=== PATIENT | female | born 1955 | race Caucasian/White ===

== ENCOUNTER → 2018-09-09 | Outpatient (CLI) | payer MEDICARE ==
[~2018-09-09] MED LIST: AC500T PO; ALPR.25T PO; CEPH-38 PO; CEPH500C PO; DICL75TA2 PO; DIPH50CA33 PO; FLUO20CA25 PO; FLUO40CA PO; HYDR-3454 PO; HYDR-3583 PO; LISI1TAB PO; LISI1TAB6 PO; LVT.05T PO; MTF500T PO; OMEP20CA6 PO; PHEN37.555 PO; TRAM50TA2 PO; penicillin PO
[2018-09-09 12:20] LABS: HEMATOCRIT 34 % (35-52); HEMOGLOBIN 10.5 G/DL (11.5-16.0); LYMPHOCYTES % (AUTO) 24 % (12-44); MEAN CORPUSCULAR HEMOGLOBIN 26 PG (25-34); MEAN CORPUSCULAR HGB CONC 31 G/DL (32-36); MEAN CORPUSCULAR VOLUME 85 FL (80-99); MEAN PLATELET VOLUME 12.2 FL (7.4-10.4); NEUTROPHILS % (AUTO) 60 % (42-75); PLATELET COUNT 359 10^3/uL (130-400); RED CELL DISTRIBUTION WIDTH 19.7 % (10.0-14.5); WHITE BLOOD COUNT 6.7 10^3/uL (4.3-11.0)
[2018-09-09 12:21] LABS: BASOPHILS # (AUTO) 0.1 10^3/uL (0.0-0.1); BASOPHILS % (AUTO) 1 % (0-10); EOSINOPHILS # (AUTO) 0.3 10^3/uL (0.0-0.3); EOSINOPHILS % (AUTO) 4 % (0-10); LYMPHOCYTES # (AUTO) 1.6 X 10^3 (1.0-4.0); MONOCYTES # (AUTO) 0.8 X 10^3 (0.0-1.0); MONOCYTES % (AUTO) 11 % (0-12)
== END ==
LOC: LAB FS 11:13
PROVIDERS: ATTEND Family Medicine
DX: D64.9 Anemia, unspecified (principal)
CPT/HCPCS: 36415; 85025

== ENCOUNTER → 2020-03-08 | Outpatient (CLI) | payer MEDICARE, MEDICAID | LOC: LAB FS 18:29 | PROVIDERS: ATTEND Family Medicine | DX: J44.9 Chronic obstructive pulmonary disease, unspecified (principal); Z20.828 Contact with and (suspected) exposure to other viral communicable diseases | CPT/HCPCS: 87635 ==

== ENCOUNTER 2021-06-29 14:54 | Emergency (ER) | payer MEDICARE, MEDICAID ==
[~2021-06-29] VITALS: Ht 162 cm; Wt 96.0 kg
[2021-06-29] MEDS ORDERED: ONDANSETRON 4 MG/5 ML ORAL SOLN (ZOFRAN) 5 ML PO ONE (15:15)
[2021-06-29] MEDS ORDERED: ONDANSETRON 4 MG (ZOFRAN) ORAL DISSOLVE TAB PO STA (15:16)
--- NOTE | 2021-06-29 15:22 | Diagnostic Imaging Report ---
INDICATION: Cough and shortness of breath, Covid positive. EXAMINATION: Frontal chest was obtained at 3:16 p.m. Heart and mediastinal silhouette are normal in appearance. The lungs are clear. There is no pneumothorax or pleural fluid. IMPRESSION: Negative chest. Dictated by: Dictated on workstation # [id number]
[2021-06-29] MEDS ORDERED: NS IV 1000 ML 1,000 ML IV SCH ×2 (15:30→17:00)
[2021-06-29 15:32] LABS: BASOPHILS # (AUTO) 0.1 10^3/uL (0.0-0.1); BASOPHILS % (AUTO) 0 % (0-10); EOSINOPHILS % (AUTO) 0 % (0-10); HEMATOCRIT 29 % (35-52); HEMOGLOBIN 9.2 g/dL (11.5-16.0); LYMPHOCYTES # (AUTO) 2.4 10^3/uL (1.0-4.0); LYMPHOCYTES % (AUTO) 10 % (12-44); MEAN CORPUSCULAR HEMOGLOBIN 28 pg (25-34); MEAN CORPUSCULAR HGB CONC 32 g/dL (32-36); MEAN CORPUSCULAR VOLUME 88 fL (80-99); MEAN PLATELET VOLUME 11.4 fL (9.0-12.2); MONOCYTES # (AUTO) 2.3 10^3/uL (0.0-1.0); MONOCYTES % (AUTO) 9 % (0-12); NEUTROPHILS # (AUTO) 20.1 10^3/uL (1.8-7.8); NEUTROPHILS % (AUTO) 80 % (42-75); PLATELET COUNT 347 10^3/uL (130-400); WHITE BLOOD COUNT 25.1 10^3/uL (4.3-11.0)
[2021-06-29 15:53] LABS: POTASSIUM 3.6 MMOL/L (3.6-5.0)
[2021-06-29 15:54] LABS: ALBUMIN 2.7 GM/DL (3.2-4.5); BILIRUBIN,TOTAL 0.4 MG/DL (0.1-1.0); CALCIUM 7.8 MG/DL (8.5-10.1); CREATININE SERUM 1.02 MG/DL (0.60-1.30); TOTAL PROTEIN 5.2 GM/DL (6.4-8.2)
[2021-06-29 15:58] LABS: ANISOCYTOSIS SLIGHT; BAND NEUTROPHILS 25 %; BASOPHILS % (MANUAL) 0 %; EOSINOPHILS % (MANUAL) 1 %; LYMPHOCYTES % (MANUAL) 8 %; MONOCYTES % (MANUAL) 7 %; NEUTROPHILS % (MANUAL) 59 %; NUCLEATED RED BLOOD CELLS 1; POIKILOCYTOSIS SLIGHT
[2021-06-29 16:42] LABS: CLARITY,URINE SL CLOUDY; COLOR,URINE YELLOW; GLUCOSE, URINE (UA) NEGATIVE (NEGATIVE); KETONES,URINE NEGATIVE (NEGATIVE); LEUKOCYTE ESTERASE ,URINE NEGATIVE (NEGATIVE); NITRITE,URINE NEGATIVE (NEGATIVE); PROTEIN,URINE 1+ (NEGATIVE)
[2021-06-29 16:53] LABS: BACTERIA,URINE MODERATE /HPF; BILIRUBIN,URINE 1+ (NEGATIVE); GRANULAR CASTS,URINE 0-2 /LPF
--- NOTE | 2021-06-29 19:40 | ED Cough/URI ---
General Chief Complaint: COVID19 Suspect/Confirmed Stated Complaint: SOB; COVID+ Nursing Triage Note: Patient has presented to ER with cc of positive covid. She reports symptoms since Saturday, she tested positive on Saturday, she complains of diarrhea, some cough, some shortness of breath, body aches, and dry lips. She has been taking tylenol for her symptoms. Source: patient Exam Limitations: no limitations History of Present Illness Date Seen by Provider: Jun 29, 2021 Time Seen by Provider: 15:00 Initial Comments Patient is a 66-year-old female presents with diagnosis of Covid 5 days ago with nausea and daily diarrhea for the past several days. Patient reports occasional cough with shortness of breath body aches. She reports dizziness with lightheadedness upon standing today. She has taken Tylenol for symptoms without relief. She denies fever chills, hematemesis coffee-ground emesis melena hematochezia. She has taken Imodium for diarrhea with minimal relief. She reports occasional abdominal pain and cramping with diarrhea. No history of C. difficile. No recent antibiotics. No other acute symptoms or complaints. Timing/Duration: week Severity/Quality: other Prior Episodes/Possible Cause: other Modifying Factors: Improves With Other Associated Symptoms: other Allergies and Home Medications Allergies Coded Allergies: Bupropion (Verified Allergy, Unknown, 08/05/08) Patient Home Medication List Home Medication List Reviewed: Yes Acetaminophen (Tylenol) 500 Mg Tablet, 1,000 MG PO BID PRN, (Reported) Entered as Reported by: LAVERN BEAN on 11/12/12 1059 Alprazolam (Xanax) 0.25 Mg Tablet, 0.25 MG PO BID PRN, (Reported) Entered as Reported by: LAVERN BEAN on 11/12/12 1053 Cephalexin Monohydrate (Cephalexin) 500 Mg Capsule, 1 EACH PO TID, (Reported) Entered as Reported by: JOSE LAWTON on 02/23/13 1500 Diclofenac Sodium (Diclofenac Sodium) 75 Mg Tablet.dr, 75 MG PO BID, (Reported) Entered as Reported by: LAVERN BEAN on 11/12/12 1053 Diphenhydramine Hcl (Benadryl 50 Mg) 50 Mg Tablet, 50 MG PO HS, (Reported) Entered as Reported by: LAVERN BEAN on 02/17/13 0950 Fluoxetine Hcl (Fluoxetine Hcl) 20 Mg Capsule, 20 MG PO DAILY, (Reported) Entered as Reported by: LAVERN BEAN on 02/17/13 0950 Hctz/Lisinopril (Lisinopril-Hctz 20-12.5 Mg Tab) 1 Each Tablet, 1 TAB PO BID, (Reported) Entered as Reported by: LAVERN BEAN on 02/17/13 0950 Hydrocodone Bit/Acetaminophen (Vicodin 5-300 Mg Tablet) 1 Each Tablet, 1-2 EACH PO Q4 - 6H PRN, (Reported) Entered as Reported by: JOSE LAWTON on 02/23/13 1500 Levothyroxine Sodium (Levothyroxine 50 Mcg Tab) 50 Mcg Tablet, 50 MCG PO DAILY, (Reported) Entered as Reported by: LAVERN BEAN on 11/12/12 1053 Metformin Hcl (Metformin 500 Mg) 500 Mg Tablet, 500 MG PO BID, (Reported) Entered as Reported by: LAVERN BEAN on 11/12/12 1053 Omeprazole (Prilosec) 20 Mg Capsule.dr, 20 MG PO BID, (Reported) Entered as Reported by: LAVERN BEAN on 11/12/12 1053 Phentermine Hcl (Phentermine Hcl) 37.5 Mg Capsule, 37.5 MG PO DAILY, (Reported) Entered as Reported by: LAVERN BEAN on 02/17/13 0950 Tramadol Hcl (Tramadol Hcl) 50 Mg Tablet, 50-100 MG PO QID PRN, (Reported) Entered as Reported by: LAVERN BEAN on 11/12/12 1050 Review of Systems Review of Systems Constitutional: see HPI EENTM: see HPI Respiratory: see HPI Cardiovascular: see HPI Gastrointestinal: see HPI Genitourinary: see HPI Musculoskeletal: see HPI Skin: see HPI Psychiatric/Neurological: See HPI Hematologic/Lymphatic: See HPI Immunological/Allergic: see HPI All Other Systems Reviewed Negative Unless Noted: Yes Past Ljewump-Owmvtl-Vtunzc Hx Patient Social History Tobacco Use?: Yes Use of E-Cig and/or Vaping dev: No Substance use?: No Alcohol Use?: No Pt feels they are or have been: Unable to obtain Physical Exam Vital Signs - First Documented 06/29/21 15:12 Temp 36.4 Pulse 91 Resp 18 B/P (MAP) 111/73 (86) Pulse Ox 96 O2 Delivery Room Air Capillary Refill : Height: '" Weight: 337lbs. oz. 152.270507xz; 36.00 BMI Method: General Appearance: WD/WN, no apparent distress Eyes: Bilateral Eye Normal Inspection, Bilateral Eye PERRL HEENT: PERRL/EOMI, normal ENT inspection Neck: non-tender, supple Respiratory: chest non-tender, lungs clear Cardiovascular: normal peripheral pulses, regular rate, rhythm Gastrointestinal: normal bowel sounds, non tender, soft Extremities: normal range of motion, non-tender Neurologic/Psychiatric: alert, oriented x 3 Focused Exam Sepsis Stage: Ruled Out Lactate Level 06/29/21 15:07: Lactic Acid Level 3.36*H 06/29/21 17:56: Lactic Acid Level 1.13 Lactic Acid Level Laboratory Tests Test 06/29/21 15:07 06/29/21 17:56 Lactic Acid Level 3.36 MMOL/L (0.50-2.00) *H 1.13 MMOL/L (0.50-2.00) Progress/Results/Core Measures Suspected Sepsis SIRS Temperature: Pulse: 91 Respiratory Rate: 18 Laboratory Tests 06/29/21 15:07: White Blood Count 25.1H Blood Pressure 111 /73 Mean: 86 06/29/21 15:07: Lactic Acid Level 3.36*H 06/29/21 17:56: Lactic Acid Level 1.13 Laboratory Tests 06/29/21 15:07: Creatinine 1.02, Platelet Count 347, Total Bilirubin 0.4 Results/Orders Lab Results Laboratory Tests Test 06/29/21 15:07 06/29/21 15:10 06/29/21 17:56 Range/Units White Blood Count 25.1 H 4.3-11.0 10^3/uL Red Blood Count 3.27 L 3.80-5.11 10^6/uL Hemoglobin 9.2 L 11.5-16.0 g/dL Hematocrit 29 L 35-52 % Mean Corpuscular Volume 88 80-99 fL Mean Corpuscular Hemoglobin 28 25-34 pg Mean Corpuscular Hemoglobin Concent 32 32-36 g/dL Red Cell Distribution Width 18.3 H 10.0-14.5 % Platelet Count 347 130-400 10^3/uL Mean Platelet Volume 11.4 9.0-12.2 fL Immature Granulocyte % (Auto) 1 % Neutrophils (%) (Auto) 80 H 42-75 % Lymphocytes (%) (Auto) 10 L 12-44 % Monocytes (%) (Auto) 9 0-12 % Eosinophils (%) (Auto) 0 0-10 % Basophils (%) (Auto) 0 0-10 % Neutrophils # (Auto) 20.1 H 1.8-7.8 10^3/uL Lymphocytes # (Auto) 2.4 1.0-4.0 10^3/uL Monocytes # (Auto) 2.3 H 0.0-1.0 10^3/uL Eosinophils # (Auto) 0.0 0.0-0.3 10^3/uL Basophils # (Auto) 0.1 0.0-0.1 10^3/uL Immature Granulocyte # (Auto) 0.2 H 0.0-0.1 10^3/uL Neutrophils % (Manual) 59 % Lymphocytes % (Manual) 8 % Monocytes % (Manual) 7 % Eosinophils % (Manual) 1 % Basophils % (Manual) 0 % Band Neutrophils 25 % Nucleated Red Blood Cells 1 Poikilocytosis SLIGHT Anisocytosis SLIGHT Sodium Level 132 L 135-145 MMOL/L Potassium Level 3.6 3.6-5.0 MMOL/L Chloride Level 97 L 98-107 MMOL/L Carbon Dioxide Level 19 L 21-32 MMOL/L Anion Gap 16 H 5-14 MMOL/L Blood Urea Nitrogen 14 7-18 MG/DL Creatinine 1.02 0.60-1.30 MG/DL Estimat Glomerular Filtration Rate 60 BUN/Creatinine Ratio 14 Glucose Level 139 H 70-105 MG/DL Lactic Acid Level 3.36 *H 1.13 0.50-2.00 MMOL/L Calcium Level 7.8 L 8.5-10.1 MG/DL Corrected Calcium 8.8 8.5-10.1 MG/DL Total Bilirubin 0.4 0.1-1.0 MG/DL Aspartate Amino Transf (AST/SGOT) 28 5-34 U/L Alanine Aminotransferase (ALT/SGPT) 13 0-55 U/L Alkaline Phosphatase 141 H 40-136 U/L Total Protein 5.2 L 6.4-8.2 GM/DL Albumin 2.7 L 3.2-4.5 GM/DL Urine Color YELLOW Urine Clarity SL CLOUDY Urine pH 6.0 5-9 Urine Specific Foley 1.015 L 1.016-1.022 Urine Protein 1+ H NEGATIVE Urine Glucose (UA) NEGATIVE NEGATIVE Urine Ketones NEGATIVE NEGATIVE Urine Nitrite NEGATIVE NEGATIVE Urine Bilirubin 1+ H NEGATIVE Urine Urobilinogen 0.2 < = 1.0 MG/DL Urine Leukocyte Esterase NEGATIVE NEGATIVE Urine RBC (Auto) NEGATIVE NEGATIVE Urine RBC NONE /HPF Urine WBC 2-5 /HPF Urine Squamous Epithelial Cells 2-5 /HPF Urine Crystals NONE /LPF Urine Bacteria MODERATE H /HPF Urine Casts PRESENT /LPF Urine Granular Casts 0-2 H /LPF Urine Mucus SMALL H /LPF Urine Culture Indicated YES My Orders Orders - SHAH,CHOLO DO Chest 1 View Ap/Pa Only (06/29/21 15:10) Ondansetron Oral Solution (Zofran Oral S (06/29/21 15:15) Ondansetron Oral Dissolve Tab (Zofran (06/29/21 15:16) Cbc With Automated Diff (06/29/21 15:25) Comprehensive Metabolic Panel (06/29/21 15:25) Ua Culture If Indicated (06/29/21 15:25) Ns Iv 1000 Ml (Sodium Chloride 0.9%) (06/29/21 15:30) Manual Differential (06/29/21 15:07) C Difficile Ag + Toxin A/B. (06/29/21 16:08) Isolation Central Supply Req (06/29/21 16:08) Lactic Acid Analyzer (06/29/21 16:30) Ns Iv 1000 Ml (Sodium Chloride 0.9%) (06/29/21 17:00) Urine Culture (06/29/21 15:10) Ciprofloxacin Tablet (Cipro Tablet) (06/29/21 19:45) Metronidazole Tablet (Flagyl Tablet) (06/29/21 19:45) Vital Signs/I&O 06/29/21 15:12 Temp 36.4 Pulse 91 Resp 18 B/P (MAP) 111/73 (86) Pulse Ox 96 O2 Delivery Room Air Capillary Refill : Blood Pressure Mean: 86 Departure Communication (Admissions) Abdomen soft, nonsurgical on reevaluation. Vital signs stable. Patient unable to provide stool for C. difficile sample in the ER. Labs reviewed. Empiric antibiotics given. Recommendations are continued supportive and therapeutic care with PCP follow-up. Return precautions reviewed. Patient verbalizes understanding agreement discharge instructions prior to departure. Impression Primary Impression: Nausea Additional Impression: Diarrhea Disposition: 01 HOME, SELF-CARE Condition: Stable Departure-Patient Inst. Decision time for Depature: 19:41 Referrals: HENRY MONTEIRO MD (PCP/Family) Primary Care Physician Patient Instructions: Diarrhea, Adult ED, Nausea and Vomiting, Adult (DC) Add. Discharge Instructions: You were evaluated in the emergency department for nausea and diarrhea. Your symptoms are consistent with Covid related illness and dehydration. Please take newly prescribed medications as directed, drink clear liquids for the next 6 to 12 hours and then gradually increase to a soft bland diet as tolerated. Follow- up with your PCP early next week. Return to the ED if new or worsening symptoms. All discharge instructions reviewed with patient and/or family. Voiced understanding. Scripts Ondansetron (Ondansetron Odt) 4 Mg Tab.rapdis 4 MG PO Q6H, #10 TAB Prov: CHOLO SHAH DO 06/29/21 Ciprofloxacin HCl (Ciprofloxacin HCl) 500 Mg Tablet 500 MG PO BID, #14 TAB Prov: CHOLO SHAH DO 06/29/21 Metronidazole (Metronidazole) 500 Mg Tablet 500 MG PO BID, #10 TAB 0 Refills Prov: CHOLO SHAH DO 06/29/21 CHOLO SHAH DO Jun 29, 2021 19:40
[2021-06-29] MEDS ORDERED: METR-145 PO (19:44)
[2021-06-29] MEDS ORDERED: CIPR500T5 PO (19:44)
[2021-06-29] MEDS ORDERED: metroNIDAZOLE 500 MG (FLAGYL) TAB PO ONE (19:45)
[2021-06-29] MEDS ORDERED: CIPROFLOXACIN 500 MG (CIPRO) TABLET PO SCH (19:45)
[2021-06-29] MEDS ORDERED: ONDA4TAB11 PO (19:45)
[2021-06-29 19:55] VITALS: BP 102/64
== END 2021-06-29 19:55 | disposition home or self-care (01) ==
LOC: EDUNIT# 14:54 → ER FS 14:56
DX: U07.1 COVID-19 (principal); R11.0 Nausea; Z72.0 Tobacco use
CPT/HCPCS: 36415; 71045; 80053; 81000; 83605; 85007; 85027; 87088

== ENCOUNTER 2022-02-09 00:07 | Emergency (ER) | payer OTHER, MEDICAID ==
[~2022-02-09] VITALS: Ht 160 cm; Wt 93.8 kg
[~2022-02-09 00:07] MED LIST changes: +CIPR500T5 PO; +METR-145 PO; +ONDA4TAB11 PO
--- NOTE | 2022-02-09 00:19 | ED Integumentary General ---
General Stated Complaint: LEFT INDEX FINGER LACERATION History of Present Illness Date Seen by Provider: Feb 09, 2022 Time Seen by Provider: 00:15 Initial Comments 66-year-old female presents with a laceration/skin avulsion to the left index finger. Patient reports that happened around 6 PM this evening. She accidentally got slammed in a door. Patient reports that she is on Eliquis was having difficulty getting to stop bleeding so she came to the ER. Upon arrival ER is currently not bleeding. Patient reports no other injuries. Patient is unsure when her last tetanus vaccine was Allergies and Home Medications Allergies Coded Allergies: bupropion (Verified Allergy, Unknown, 08/05/08) morphine (Verified Allergy, Unknown, 02/09/22) Patient Home Medication List Home Medication List Reviewed: Yes Acetaminophen (Tylenol) 500 Mg Tablet, 1,000 MG PO BID PRN, (Reported) Entered as Reported by: LAVERN BEAN on 11/12/12 1059 Alprazolam (Xanax) 0.25 Mg Tablet, 0.25 MG PO BID PRN, (Reported) Entered as Reported by: LAVERN BEAN on 11/12/12 1053 Cephalexin Monohydrate (Cephalexin) 500 Mg Capsule, 1 EACH PO TID, (Reported) Entered as Reported by: JOSE LAWTON on 02/23/13 1500 Ciprofloxacin HCl (Ciprofloxacin HCl) 500 Mg Tablet, 500 MG PO BID Prescribed by: CHOLO SHAH on 06/29/21 194 Diclofenac Sodium (Diclofenac Sodium) 75 Mg Tablet.dr, 75 MG PO BID, (Reported) Entered as Reported by: LAVERN BEAN on 11/12/12 1053 Diphenhydramine Hcl (Benadryl 50 Mg) 50 Mg Tablet, 50 MG PO HS, (Reported) Entered as Reported by: LAVERN BEAN on 02/17/13 0950 Fluoxetine Hcl (Fluoxetine Hcl) 20 Mg Capsule, 20 MG PO DAILY, (Reported) Entered as Reported by: LAVERN BEAN on 02/17/13 0950 Hctz/Lisinopril (Lisinopril-Hctz 20-12.5 Mg Tab) 1 Each Tablet, 1 TAB PO BID, (Reported) Entered as Reported by: LAVERN BEAN on 02/17/13 0950 Hydrocodone Bit/Acetaminophen (Vicodin 5-300 Mg Tablet) 1 Each Tablet, 1-2 EACH PO Q4 - 6H PRN, (Reported) Entered as Reported by: JOSE LAWTON on 02/23/13 1500 Levothyroxine Sodium (Levothyroxine 50 Mcg Tab) 50 Mcg Tablet, 50 MCG PO DAILY, (Reported) Entered as Reported by: LAVERN BEAN on 11/12/12 105 Metformin Hcl (Metformin 500 Mg) 500 Mg Tablet, 500 MG PO BID, (Reported) Entered as Reported by: LAVERN BEAN on 11/12/12 105 Metronidazole (Metronidazole) 500 Mg Tablet, 500 MG PO BID Prescribed by: CHOLO SHAH on 06/29/211943 Omeprazole (Prilosec) 20 Mg Capsule.dr, 20 MG PO BID, (Reported) Entered as Reported by: LAVERN BEAN on 11/12/12 105 Ondansetron (Ondansetron Odt) 4 Mg Tab.rapdis, 4 MG PO Q6H Prescribed by: CHOLO SHAH on 06/29/211944 Phentermine Hcl (Phentermine Hcl) 37.5 Mg Capsule, 37.5 MG PO DAILY, (Reported) Entered as Reported by: LAVERN BEAN on 02/17/13 0950 Tramadol Hcl (Tramadol Hcl) 50 Mg Tablet, 50-100 MG PO QID PRN, (Reported) Entered as Reported by: LAVERN BEAN on 11/12/12 105 Review of Systems Review of Systems Constitutional: no symptoms reported EENTM: no symptoms reported Respiratory: no symptoms reported Cardiovascular: no symptoms reported Gastrointestinal: no symptoms reported Musculoskeletal: no symptoms reported Skin: see HPI Psychiatric/Neurological: No Symptoms Reported Endocrine: No Symptoms Reported Physical Exam Vital Signs Vital Signs - First Documented 02/09/22 00:20 Temp 36.5 Pulse 67 Resp 18 B/P (MAP) 136/95 (109) Pulse Ox 97 O2 Delivery Room Air Capillary Refill : General Appearance: WD/WN, no apparent distress Cardiovascular: normal peripheral pulses, regular rate, rhythm Respiratory: lungs clear, normal breath sounds Extremities: normal range of motion Skin Problem Location: upper extremities (Left index finger) Skin Problem Character: other (Approximately 1 cm skin avulsion, nonsuturable) Lymphatic: no adenopathy Progress/Results/Core Measures Results/Orders Vital Signs/I&O 02/09/22 00:20 Temp 36.5 Pulse 67 Resp 18 B/P (MAP) 136/95 (109) Pulse Ox 97 O2 Delivery Room Air Progress Progress Note : Progress Note Patient's wound is no longer bleeding or seeping. Patient with a nonsuturable laceration. Wound was cleaned and dressed by nursing staff. Patient received a tetanus since she was unsure when her last was. Patient was stable discharged Departure Impression Primary Impression: Avulsion of skin of index finger without complication Qualified Codes: S61.208A - Unspecified open wound of other finger without damage to nail, initial encounter Disposition: 01 HOME, SELF-CARE Condition: Stable Departure-Patient Inst. Patient Instructions: SKIN AVULSION, Wound Care (DC) Add. Discharge Instructions: Keep clean with warm soapy water Keep covered with clean bandage Follow with your primary care provider as needed ASHLEY LIN DO Feb 09, 2022 00:19
[2022-02-09] MEDS ORDERED: TETANUS,DIPTH,PERTUSS P/F (BOOSTRIX) 0.5 ML VIAL IM ONE (00:45)
[2022-02-09 00:54] VITALS: BP 136/95
== END 2022-02-09 00:54 | disposition home or self-care (01) ==
LOC: EDUNIT# 00:07 → ER FS 00:20
DX: S61.201A Unspecified open wound of left index finger without damage to nail, initial encounter (principal); Z23 Encounter for immunization; Z28.310 Unvaccinated for COVID-19; W23.1XXA Caught, crushed, jammed, or pinched between stationary objects, initial encounter
CPT/HCPCS: 90715; 99284

== ENCOUNTER 2023-02-08 09:47 | Emergency (ER) | payer MEDICARE, MEDICAID ==
[~2023-02-08] VITALS: Ht 162.6 cm; Wt 100.7 kg
--- NOTE | 2023-02-08 10:09 | ED Head Injury ---
General Chief Complaint: Trauma-Non Activation Stated Complaint: FALL; FACIAL INJ Nursing Triage Note: FACIAL PAIN AND SWELLING Source: patient Exam Limitations: no limitations History of Present Illness Date Seen by Provider: Feb 08, 2023 Time Seen by Provider: 10:00 Initial Comments 67-year-old female presents to the emergency department today for a closed head injury. She was sitting on the toilet this morning and fell asleep. She fell forward striking her head on the corner of the bathtub. She denies loss of consciousness. She has pain across the bridge of her nose. She is on Eliquis. All other systems reviewed and negative except documented per HPI. Voice recognition software was used to help create this chart Allergies and Home Medications Allergies Coded Allergies: bupropion (Verified Allergy, Unknown, 08/05/08) morphine (Verified Allergy, Unknown, 02/09/22) Patient Home Medication List Home Medication List Reviewed: Yes Acetaminophen (Tylenol) 500 Mg Tablet, 1,000 MG PO BID PRN, (Reported) Entered as Reported by: LAVERN EBAN on 11/12/12 1059 Alprazolam (Xanax) 0.25 Mg Tablet, 0.25 MG PO BID PRN, (Reported) Entered as Reported by: LAVERN BEAN on 11/12/12 1053 Cephalexin Monohydrate (Cephalexin) 500 Mg Capsule, 1 EACH PO TID, (Reported) Entered as Reported by: JOSE LAWTON on 02/23/13 1500 Ciprofloxacin HCl (Ciprofloxacin HCl) 500 Mg Tablet, 500 MG PO BID Prescribed by: CHOLO SHAH on 06/29/21 1944 Diclofenac Sodium (Diclofenac Sodium) 75 Mg Tablet.dr, 75 MG PO BID, (Reported) Entered as Reported by: LAVERN BEAN on 11/12/12 1053 Diphenhydramine Hcl (Benadryl 50 Mg) 50 Mg Tablet, 50 MG PO HS, (Reported) Entered as Reported by: LAVERN BEAN on 02/17/13 0950 Fluoxetine Hcl (Fluoxetine Hcl) 20 Mg Capsule, 20 MG PO DAILY, (Reported) Entered as Reported by: LAVERN BEAN on 02/17/13 0950 Hctz/Lisinopril (Lisinopril-Hctz 20-12.5 Mg Tab) 1 Each Tablet, 1 TAB PO BID, (Reported) Entered as Reported by: LAVERN BEAN on 02/17/13 0950 Hydrocodone Bit/Acetaminophen (Vicodin 5-300 Mg Tablet) 1 Each Tablet, 1-2 EACH PO Q4 - 6H PRN, (Reported) Entered as Reported by: JOSE LAWTON on 02/23/13 1500 Levothyroxine Sodium (Levothyroxine 50 Mcg Tab) 50 Mcg Tablet, 50 MCG PO DAILY, (Reported) Entered as Reported by: LAVERN BEAN on 11/12/12 105 Metformin Hcl (Metformin 500 Mg) 500 Mg Tablet, 500 MG PO BID, (Reported) Entered as Reported by: LAVERN BEAN on 11/12/12 105 Metronidazole (Metronidazole) 500 Mg Tablet, 500 MG PO BID Prescribed by: CHOLO SHAH on 06/29/211943 Omeprazole (Prilosec) 20 Mg Capsule.dr, 20 MG PO BID, (Reported) Entered as Reported by: LAVERN BEAN on 11/12/12 105 Ondansetron (Ondansetron Odt) 4 Mg Tab.rapdis, 4 MG PO Q6H Prescribed by: CHOLO SHAH on 06/29/211944 Phentermine Hcl (Phentermine Hcl) 37.5 Mg Capsule, 37.5 MG PO DAILY, (Reported) Entered as Reported by: LAVERN BEAN on 02/17/13 0950 Tramadol Hcl (Tramadol Hcl) 50 Mg Tablet, 50-100 MG PO QID PRN, (Reported) Entered as Reported by: LAVERN BEAN on 11/12/12 105 Review of Systems Review of Systems Constitutional: see HPI Past Qryqdfz-Lsrkiy-Uoizze Hx Patient Social History Tobacco Use?: No Smoking Status: Never a Smoker Smokeless Tobacco Frequency: Never a User Use of E-Cig and/or Vaping dev: No Use of E-Cig and/or Vaping Ever: Never a User Substance use?: No Alcohol Use?: No Pt feels they are or have been: No Physical Exam Vital Signs Capillary Refill : Height, Weight, BMI Height: '" Weight: 337lbs. oz. 152.713621te; 36.00 BMI Method: General Appearance: WD/WN, no apparent distress HEENT: other (Swelling and bruising across the bridge of the nose. Left periorbital hematoma.) Neck: non-tender, supple Cardiovascular: regular rate, rhythm, no murmur Respiratory: chest non-tender, lungs clear, normal breath sounds, no respiratory distress, no accessory muscle use Gastrointestinal: normal bowel sounds, non tender, soft, no organomegaly Back: normal inspection, no vertebral tenderness Extremities: normal range of motion, non-tender, normal inspection, normal capillary refill Psychiatric: alert, oriented x 3 Motor/Sensory: no motor deficit, no sensory deficit Skin: other (Bruising as described elsewhere) Progress/Results/Core Measures Results/Orders My Orders Orders - YESIKA FLORES DO Ct Head Wo (02/08/23 10:04) Departure Communication (Admissions) Patient is hemodynamically stable, alert and oriented GCS of 15. She has significant head injury and is on Eliquis a CT scan was undertaken and is negative. She has no other injuries. Discharged in stable condition. Impression Primary Impression: Closed head injury Qualified Codes: S09.90XA - Unspecified injury of head, initial encounter Disposition: HOME, SELF-CARE Condition: Stable Departure-Patient Inst. Referrals: HENRY MONTEIRO MD (PCP) Primary Care Physician Patient Instructions: Minor Head Injury, Adult ED Add. Discharge Instructions: Your CT scan is normal. No emergent condition is identified. Ice the area. B ruising is likely to get worse before gets better. Return to the emergency department for any severe concerns. Follow-up with your primary doctor for any nonemergent needs. All discharge instructions reviewed with patient and/or family. Voiced understan isha. YESIKA FLORES DO Feb 08, 2023 10:09
--- NOTE | 2023-02-08 10:38 | Diagnostic Imaging Report ---
PROCEDURE: CT head without contrast. TECHNIQUE: Multiple contiguous axial images were obtained through the brain without the use of intravenous contrast. Auto Exposure Controls were utilized during the CT exam to meet ALARA standards for radiation dose reduction. INDICATION: Head injury. Trauma. Anticoagulation therapy. Fall. COMPARISON: None. FINDINGS: Mild to moderate generalized parenchymal volume loss. No CT evidence of a territorial infarction. Prominent perivascular space versus parahippocampal remnant cyst on the right. No intracranial hemorrhage, mass effect, hydrocephalus or extra-axial fluid collections. Osseous structures are intact. The visualized paranasal sinuses and mastoids are clear. IMPRESSION: No acute intracranial CT findings. Dictated by: Dictated on workstation # [id number]
[2023-02-08 10:41] VITALS: BP 143/87
== END 2023-02-08 10:41 | disposition home or self-care (01) ==
LOC: EDUNIT# 09:47 → ER FS 09:49
DX: S00.33XA Contusion of nose, initial encounter (principal); S00.12XA Contusion of left eyelid and periocular area, initial encounter; Z79.01 Long term (current) use of anticoagulants; Z28.310 Unvaccinated for COVID-19; W18.12XA Fall from or off toilet with subsequent striking against object, initial encounter; Y92.002 Bathroom of unspecified non-institutional (private) residence as the place of occurrence of the external cause
CPT/HCPCS: 70450